=== PATIENT | male | born 1990 | race Caucasian/White ===

== ENCOUNTER 2023-09-27 19:44 | Emergency (ER) | payer BC ==
[~2023-09-27] VITALS: Ht 182.9 cm; Wt 112.9 kg
[2023-09-27 19:59] VITALS: BP 141/90; PULSE 71; RESP 18; TEMP 98.2; O2SAT 99
[2023-09-27] MEDS ORDERED: FLUORESCEIN OPTH STRIP 1 MG ONE (21:06)
[2023-09-27] MEDS: FLUORESCEIN OPTH STRIP 1 MG OP ONE (21:09)
[2023-09-27] MEDS ORDERED: ACYC400T14 PO (21:19)
[2023-09-27] MEDS ORDERED: PRED20TA5 PO (21:19)
== END 2023-09-27 21:26 | disposition home or self-care (01) ==
LOC: MED 19:44
DX: B02.9 Zoster without complications (principal); Z79.899 Other long term (current) drug therapy
CPT/HCPCS: 99283